=== PATIENT | female | born 1955 | race Two or more races ===

== ENCOUNTER 2024-01-19 13:37 | Emergency (ER) | payer MEDICARE, MEDICAID ==
[~2024-01-19] VITALS: Ht 165.1 cm; Wt 72.7 kg
[2024-01-19 15:12] LABS: Urine Bacteria FEW /hpf (None Seen); Urine Blood Negative /uL (Negative); Urine Clarity Turbid (Clear); Urine Color Yellow (Yellow); Urine Hyaline Cast FEW /lpf (0 - 2); Urine Mucus FEW (None Seen); Urine Protein, UAD TRACE (Negative); Urine Specific Gravity 1.018 (1.001-1.035); Urine Urobilinogen Normal (Negative); Urine WBC 4 /hpf (0 - 5); Urine pH 6.5 (5.0-9.0)
[2024-01-19] MEDS: cefTRIAXone 1GM/50ML D5W 50 ML IV ONE (16:34)
[2024-01-19 16:36] LABS: Basophils # (auto) 0.1 10 ^3/uL (0-0.2); Basophils % (auto) 0.6 % (0.0-2.0); Eosinophils # (auto) 0.3 10 ^3/uL (0-0.8); Eosinophils % (auto) 2.9 % (0.0-7.0); Lymphocytes # (auto) 2.5 10 ^3/uL (0.4-5.4); Mean Corpuscular Hemoglobin 24.2 pg (28.0-32.0); Mean Corpuscular Hgb Conc. 32.4 g/dL (32.0-36.0); Mean Corpuscular Volume 74.9 fL (80.0-100.0); Monocytes # (auto) 0.9 10 ^3/uL (0-1.3); Monocytes % (auto) 8.2 % (0.0-12.0); Neutrophils # (auto) 7.4 10 ^3/uL (1.6-8.6); Neutrophils % (auto) 66.3 % (37.0-80.0); Red Blood Cells 5.35 10^6/uL (4.0-5.20); Red Cell Distribution Width 14.4 % (11.8-14.3); White Blood Cell 11.2 10^3/uL (4.4-10.8)
[2024-01-19 16:58] LABS: Alanine Aminotransferase 19 U/L (7-40); Albumin 4.5 g/dL (3.2-4.8); Alkaline Phosphatase 77 U/L (46-116); Anion Gap 6 (5-15); Aspartate Aminotransferase 15 U/L (13-40); Bilirubin, Total 1.9 mg/dL (0.2-1.0); Blood Urea Nitrogen 18 mg/dL (9-23); Calcium 9.9 mg/dL (8.7-10.4); Carbon Dioxide 29 mmol/L (20-30); Chloride 102 mmol/L (98-107); Glucose 108 mg/dL (74-106); Lipase 55 U/L (12-53); Potassium 3.2 mmol/L (3.5-5.1); Sodium 137 mmol/L (136-145); Total Protein 7.4 g/dL (5.7-8.2)
[2024-01-19] MEDS ORDERED: AUG875T PO (20:21)
[2024-01-19] MEDS: AMOXICILLIN/CLAVUL 875 MG TAB PO ONE (21:02)
[2024-01-19] MEDS: HYDROcodone-ACET 5/325MG TAB PO ONE (21:02)
[2024-01-19 21:04] VITALS: BP 170/87; PULSE 75; RESP 18; TEMP 98.3; O2SAT 98
== END 2024-01-19 21:07 | disposition home or self-care (01) ==
LOC: EDBD 13:37 → ER 13:37
DX: N39.0 Urinary tract infection, site not specified (principal); K57.32 Diverticulitis of large intestine without perforation or abscess without bleeding; R91.1 Solitary pulmonary nodule; E11.9 Type 2 diabetes mellitus without complications; I10 Essential (primary) hypertension; Z90.49 Acquired absence of other specified parts of digestive tract
CPT/HCPCS: 36415; 74176; 80053; 81001; 83605; 83690; 84484; 85025; 87040; 96365; 99285; J0696

== ENCOUNTER 2024-12-01 14:59 | Inpatient (IN) | payer MEDICARE, MEDICAID ==
[~2024-12-01] VITALS: Ht 152.4 cm; Wt 73.3 kg
[~2024-12-01 14:59] MED LIST: AUG875T PO
--- NOTE | 2024-12-01 15:19 | ED.PDOC ---
Musculoskeletal HPI Comments 69 year old female KWABENA presents to the ED with chief shoulder pain s/p syncope. EMS reports that the patient was witnessed by family to have had a syncopal episode in the kitchen, hitting her left shoulder against some cabinets and her left hip hitting the ground. EMS relays that the patient had taken about 2-3 minutes to wake up and since then she has been complaining of left shoulder and hip pain. Patient denies any head injury, back injury, chest pain, SOB, N/V, or blurred vision. Time Seen by MD: 15:14 Reviewed Notes: Nurses Notes, Medications, Allergies Allergies: Coded Allergies: NO KNOWN ALLERGIES (Unverified , 01/19/24) Home Meds Active Scripts Amoxicillin & Pot Clavulanate (AUGMENTIN TABLET) 875 Mg Tb, 875 MG PO BID for 10 Days, #20 TAB Prov:ELROY RIZZO DO 01/19/24 Information Source: Patient Mode of Arrival: EMS Location: Left Extremity Location: Hip, Shoulder Timing: Hours Prehospital treatment: None Severity: Moderate Able to Move Extremity: Yes Bear Weight: Fully Pain: Moderate Mechanism: Blunt Trauma Circumstances: Fall Onset of Symptoms: After Trauma Symptoms: Pain DVT Risk Factors: NONE Last Tetanus: UTD Associated signs and symptoms: Shoulder pain, Hip pain Past Medical History PAST MEDICAL HISTORY: DM, HTN Surgical History: Cholecystectomy 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 History Family History Family History: Reviewed,noncontributory to illness Social History Smoker: Non-Smoker Alcohol: Denies ETOH Use Drugs: Denies Drug Use Lives In: Home Constitutional: denies: chills, diaphoresis, fatigue, fever, malaise, sweats, weakness, others EENTM: denies: blurred vision, double vision, ear bleeding, ear discharge, ear drainage, ear pain, ear ringing, eye pain, eye redness, hearing loss, mouth pain, mouth swelling, nasal discharge, nose bleeding, nose congestion, nose pain, photophobia, tearing, throat pain, throat swelling, voice changes, others Respiratory: denies: cough, hemoptysis, orthopnea, SOB at rest, shortness of breath, SOB with excertion, stridor, wheezing, others Cardiovascular: reports: syncope; denies: chest pain, dizzy spells, omer phoresis, Dyspnea on exertion, edema, irregular heart beat, left arm pain, lightheadedness, palpitations, PND, others Gastrointestinal: denies: abdomen distended, abdominal pain, blood streaked bowels, constipated, diarrhea, dysphagia, difficulty swallowing, hematemesis, melena, nausea, poor appetite, poor fluid intake, rectal bleeding, rectal pain, vomiting, others Genitourinary: denies: abnormal vagina bleeding, burning, dyspareunia, dysuria, flank pain, frequency, hematuria, incontinence, pain, , vagina discharge, urgency, others Neurological: reports: dizziness; denies: fainting, headache, left sided numbness, left sided weakness, numbness, paresthesia, pre-existing deficit, right sided numbness, right sided weakness, seizure, speech problems, tingling, tremors, weakness, others Musculoskeletal: reports: others (Left shoulder pain, Left hip pain); denies: back pain, gout, joint pain, joint swelling, muscle pain, muscle stiffness, neck pain Integumetry: denies: bruises, change in color, change in hair/nails, dryness, laceration, lesions, lumps, rash, wounds, others Allergic/Immunocompromised: denies: Difficulty Healing, Frequent Infections, Hives, Itching, others Hematologic/Lymphatic: denies: anemia, blood clots, easy bleeding, easy bruising, swollen glands, others Endocrine: denies: excessive hunger, excessive sweating, excessive thirst, excessive urination, flushing, intolerance to cold, intolerance to heat, unexplained weight gain, unexplained weight loss, others Psychiatric: denies: anxiety, bipolar disorder, depression, hopeless, panic disorder, schizophrenia, sleepless, suicidal, others All Other Systems: Reviewed and Negative Physical Exam General Appearance: Moderate Distress, Normal HEENT: Normal ENT Inspection, PERRL/EOMI Neck: Full Range of Motion, Non-Tender, Normal, Normal Inspection Respiratory: Chest Non-Tender, Lungs Clear, No Accessory Muscle Use, No Respiratory Distress, Normal Breath Sounds Cardiovascular: No Edema, No JVD, No Murmur, No Gallop, Normal Peripheral Pulses, Regular Rate/Rhythm Breast Exam: Deferred Gastrointestinal: No Organomegaly, Non Tender, No Pulsatile Mass, Normal Bowel Sounds, Soft Genitalia: Deferred Pelvic: Deferred Rectal: Deferred Extremities: No calf tenderness, Normal capillary refill, Normal inspection, Normal range of motion, Non-tender, No pedal edema Musculoskeletal : Apperance: Normal Neurologic: Disoriented, No Motor Deficits, Normal Affect, Normal Mood, No Sensory Deficits Cerebellar Function: NOT DONE Reflexes: NOT DONE Skin: Dry, Normal Color, Warm Peripheral Pulses: 3+ Radial (R), 3+ Radial (L) Lymphatic: No Adenopathy Was a procedure done? Was a procedure done?: No EKG EKG : Pulse Rate (adult): 73 [place]: Normal Cardiac Rhythm: NSR Block: None Hypertrophy: None ST: Normal Differential Diagnosis EXT Differential Diagnosis: Fracture, Sprain, Contusion, Strain X-Ray, Labs, Meds, VS Vital Signs Date Time Temp Pulse Resp B/P (MAP) Pulse Ox O2 Delivery O2 Flow Rate FiO2 12/01/24 15:19 73 12/01/24 15:05 73 Lab Test 12/01/24 15:46 Range/Units White Blood Count 8.4 4.4-10.8 10^3/uL Red Blood Count 5.50 H 4.0-5.20 10^6/uL Hemoglobin 13.4 12.2-16.2 g/dL Hematocrit 41.0 36.0-46.0 % Mean Corpuscular Volume 74.6 L 80.0-100.0 fL Mean Corpuscular Hemoglobin 24.4 L 28.0-32.0 pg Mean Corpuscular Hemoglobin Concent 32.7 32.0-36.0 g/dL Red Cell Distribution Width 14.9 H 11.8-14.3 % Platelet Count 350 140-450 10^3/uL Mean Platelet Volume 8.0 6.9-10.8 fL Neutrophils (%) (Auto) 66.2 37.0-80.0 % Lymphocytes (%) (Auto) 20.6 10.0-50.0 % Monocytes (%) (Auto) 7.6 0.0-12.0 % Eosinophils (%) (Auto) 4.9 0.0-7.0 % Basophils (%) (Auto) 0.7 0.0-2.0 % Neutrophils # (Auto) 5.6 1.6-8.6 10 ^3/uL Lymphocytes # (Auto) 1.7 0.4-5.4 10 ^3/uL Monocytes # (Auto) 0.6 0-1.3 10 ^3/uL Eosinophils # (Auto) 0.4 0-0.8 10 ^3/uL Basophils # (Auto) 0.1 0-0.2 10 ^3/uL Nucleated Red Blood Cells 0.0 % Sodium Level 137 136-145 mmol/L Potassium Level 4.4 3.5-5.1 mmol/L Chloride Level 99 98-107 mmol/L Carbon Dioxide Level 30 20-31 mmol/L Anion Gap 8 5-15 Blood Urea Nitrogen 16 9-23 mg/dL Creatinine 0.96 0.550-1.02 mg/dL Glomerular Filtration Rate Calc 63 >90 mL/min BUN/Creatinine Ratio 16.7 10.0-20.0 Serum Glucose 113 H 74-106 mg/dL Calcium Level 10.6 H 8.7-10.4 mg/dL Troponin I High Sensitivity 9 </=34 ng/L Patient is slightly confused. Daughter at bedside. Vitals stable. Answering questions. Cardiac marker within normal limits. EKG reviewed does not show any acute changes. CT of the head reviewed does not show any acute changes. WBC within normal limits. Hemoglobin within normal limits. Possibly will need echocardiogram. Possibly will need stress test. Unknown why she had passed out for few minutes. Possibly will need MRI. Explained to the family at 5:10 p.m. that she will be admitted. Continue monitoring. Time of 1ST Reevaluation: 16:14 Reevaluation 1ST: Unchanged Patient Education/Counseling: Diagnosis, Treatment Family Education/Counseling: No Family Present Additional Information The following tests were ordered, and results were reviewed by me: Additional Information was gathered from interviewing the following independent historians: I reviewed and agreed with the following test results read by other providers: I discussed treatment and results with medical personnel and: patient Comprehensive systems review obtained and negative except for what is stated in the HPI. Departure 1 Departure Time of Disposition: 17:00 Impression: Primary Impression: Metabolic encephalopathy Additional Impression: Syncope Qualified Codes: R55 - Syncope and collapse Disposition: 09 ADMITTED INPATIENT Admit to: Med Surg Condition: Guarded Comments Spoke to and examined patient at 1514, discussing treatment plan at this time. Critical Care Note Critical Care Time?: No Stability Stability form required: No Heart Score Heart Score: Heart Score Response (Comments) Value History Highly Suspicious 2 EKG Normal 0 Age >65 2 Risk Factors >3 or Hx ASHD 2 Troponin Normal limit 0 Total 6 I personally scribed for JUAQUIN HANSON MD ([email or web address]) on 12/01/24 at 15:19. Electronically submitted by Andrew Alvarez ([email or web address]). I personally scribed for JUAQUIN HANSON MD ([email or web address]) on 12/01/24 at 15:19. Electronically submitted by Andrew Alvarez ([email or web address]). JUAQUIN HANSON MD December 01, 2024 15:19
[2024-12-01 15:58] LABS: Basophils # (auto) 0.1 10 ^3/uL (0-0.2); Basophils % (auto) 0.7 % (0.0-2.0); Eosinophils # (auto) 0.4 10 ^3/uL (0-0.8); Eosinophils % (auto) 4.9 % (0.0-7.0); Hemoglobin 13.4 g/dL (12.2-16.2); Lymphocytes # (auto) 1.7 10 ^3/uL (0.4-5.4); Lymphocytes % (auto) 20.6 % (10.0-50.0); Mean Corpuscular Hemoglobin 24.4 pg (28.0-32.0); Mean Corpuscular Hgb Conc. 32.7 g/dL (32.0-36.0); Mean Corpuscular Volume 74.6 fL (80.0-100.0); Monocytes # (auto) 0.6 10 ^3/uL (0-1.3); Monocytes % (auto) 7.6 % (0.0-12.0); Neutrophils # (auto) 5.6 10 ^3/uL (1.6-8.6); Neutrophils % (auto) 66.2 % (37.0-80.0); Platelet Count (auto) 350 10^3/uL (140-450); Red Cell Distribution Width 14.9 % (11.8-14.3); White Blood Cell 8.4 10^3/uL (4.4-10.8)
--- NOTE | 2024-12-01 16:00 | DVH ---
CLINICAL INFORMATION: 69 years old, Female; syncope. TECHNIQUE: Axial imaging was obtained through the brain without contrast. Coronal and sagittal reform atted images were obtained, reviewed, and stored. Images were reviewed in brain and bone windows. Al l CT scans at this medical facility are performed using dose modulation techniques as appropriate to a performed exam including the following: Automated exposure control was utilized; adjustment of the MA and/or KV according to patient size; and use of iterative reconstruction technique. CTDIvol = 54.6 2 mGy DLP = 1184.13 mGy-cm COMPARISON: None FINDINGS: There is no acute intracranial hemorrhage. No mass effect or midline shift. Scattered areas of hypoattenuation are seen in the periventricular and subcortical white matter, which are nonspecif ic but most likely sequelae of small vessel ischemic disease.The ventricles and sulci are within norm al limits in size for age. Basal cisterns are patent. The calvarium is unremarkable. Mucosal thicken ing in the paranasal sinuses with mild partial opacification of the anterior right ethmoid air cells and right frontal sinus. Mastoid air cells are clear. IMPRESSION: 1. No CT evidence of acute intracranial abnormality. 2. Paranasal sinus disease and nonacute findings as described above.
--- NOTE | 2024-12-01 16:00 | DVH ---
EXAM: XY L SHOULDER 2+ VIEW XRAY HISTORY: fall COMPARISON: None TECHNIQUE: Four views of the left shoulder were performed. FINDINGS: No acute fracture or dislocation are identified about the left shoulder. No significant degenerative changes or loss of subacromial space. IMPRESSION: 1. Unremarkable radiographs of the left shoulder.
[2024-12-01 16:04] LABS: Anion Gap 8 (5-15); Carbon Dioxide 30 mmol/L (20-31); Chloride 99 mmol/L (98-107); Potassium 4.4 mmol/L (3.5-5.1); Sodium 137 mmol/L (136-145)
[2024-12-01 16:07] LABS: Calcium 10.6 mg/dL (8.7-10.4)
[2024-12-01 16:10] LABS: BUN/Creatinine Ratio 16.7 (10.0-20.0); Blood Urea Nitrogen 16 mg/dL (9-23)
[2024-12-01 16:13] LABS: Glucose 113 mg/dL (74-106)
[2024-12-01 18:21] LABS: Urine Bacteria FEW /hpf (None Seen); Urine Blood Negative /uL (Negative); Urine Clarity Clear (Clear); Urine Color Light-Yellow (Yellow); Urine Protein, UAD Negative (Negative); Urine Specific Gravity 1.017 (1.001-1.035); Urine Squamous Epithelial Cell FEW /hpf (<5); Urine Urobilinogen Normal (Negative); Urine WBC 4 /HPF (0-5); Urine pH 5.5 (5.0-9.0)
[2024-12-01 20:00] VITALS: PULSE 60
[2024-12-01 22:12] VITALS: PULSE 68; RESP 13; O2SAT 96
[2024-12-01 22:37] LABS: LDL Cholesterol 76 mg/dL (< 100)
[2024-12-01 22:38] LABS: HDL Cholesterol 56 mg/dL (40-59)
[2024-12-01 22:39] LABS: Cholesterol 151 mg/dL (< 200)
[2024-12-01 22:43] LABS: Triglycerides 153 mg/dL (< 150)
[2024-12-01 22:45] LABS: Folate (Folic Acid) 28.2 ng/mL (>5.38)
--- NOTE | 2024-12-01 22:47 | DVHHP2 ---
History of Present Illness Reason for Visit: syncope History of Present Illness 69-year-old female BIBA after a presyncopal episode witnessed by family at home. Patient felt palpitations and started to fell like she was about to faint, but she didnt have LOC, according to the daughter and the patient, she was in the kitchen and hitting her left shoulder against cabinets and falling on her left hip. Even do, ER provider and EMS stated the patient had LOC and took 23 minutes to regain consciousness. Since the event, she has complained of moderate left shoulder and hip pain. Denies head trauma, chest pain, SOB, nausea, vomiting, or vision changes. No recent illness reported. ROS: Negative for chest pain, SOB, nausea, vomiting, dizziness before event, back pain, or blurry vision. PMH: Pre DM HTN S/P cholecystectomy SH: Non-smoker Denies EtOH or drug use Review of Systems Constitutional: No: Fever, Chills, Sweats, Weakness, Malaise, Other Eyes: No: Pain, Vision change, Conjunctivae inflammation, Eyelid inflammation, Other, Redness ENT: No: Ear pain, Ear discharge, Nose pain, Nose discharge, Nose congestion, Mouth pain, Mouth swelling, Throat pain, Throat swelling, Other Respiratory: No: Cough, Dry, Shortness of breath, SOB with excertion, Wheezing, Hemoptysis, Pleuritic Pain, Sputum, Wheezing, Other Cardiovascular: No: Chest Pain, Palpitations, Orthopnea, Paroxysmal Noc. Dyspnea, Edema, Lt Headedness, Other Gastrointestinal: No: Nausea, Vomiting, Abdominal Pain, Diarrhea, Constipation, Melena, Hematochezia, Other Genitourinary: No Dysuria, No Frequency, No Incontinence, No Hematuria, No Retention, No Other Musculoskeletal: No: other, neck pain, shoulder pain, arm pain, back pain, hand pain, leg pain, foot pain Skin: No: Rash, Lesions, Jaundice, Bruising, Other Neurological: No: Weakness, Numbness, Incoordination, Change in speech, Confusion, Seizures, Other Allergies: Coded Allergies: NO KNOWN ALLERGIES (Unverified , 01/19/24) Medications Current Medications Medications Dose Ordered Sig/Janis Route Start Time Stop Time Status Last Admin Dose Admin Enoxaparin Sodium 40 mg DAILY SC 12/02/24 10:00 Aspirin 81 mg DAILY PO 12/02/24 10:00 Pantoprazole Sodium 40 mg DAILY@0600 PO 12/02/24 06:00 Exam Vital Signs Vital Signs Date Time Temp Pulse Resp B/P (MAP) Pulse Ox O2 Delivery O2 Flow Rate FiO2 12/01/24 22:12 98.5 68 13 138/72 (94) 96 98.5 12/01/24 22:12 Room Air* 0 21 Exam General: Awake, alert, no acute distress Cardiac/Pulmonary: Normal S1/S2, no murmurs. Clear to auscultation bilaterally. Neuro: Alert, oriented, CN IIXII grossly intact. No focal deficits. MSK: No deformity. Left shoulder TTP, but no swelling or step-off. Full ROM in both hips. Ambulation limited due to pain but intact motor function. Skin: No abrasions or lacerations noted Labs/Xrays Labs Test 12/01/24 22:10 12/01/24 17:55 12/01/24 15:46 Range/Units POC Glucose 159 H 70-106 mg/dl Urine Color Light-yellow Yellow Urine Clarity Clear Clear Urine pH 5.5 5.0-9.0 Urine Specific [place] 1.017 1.001-1.035 Urine Protein Negative Negative Urine Ketones Negative Negative Urine Blood Negative Negative /uL Urine Nitrite 2+ H Negative Urine Bilirubin Negative Negative Urine Urobilinogen Normal Negative mg/dL Urine Leukocyte Esterase Trace Negative /uL Urine RBC 1 0 - 4 /hpf Urine Microscopic WBC 4 0-5 /HPF Urine Squamous Epithelial Cells Few <5 /hpf Urine Bacteria Few H None Seen /hpf Urine Glucose Normal Normal mg/dL White Blood Count 8.4 4.4-10.8 10^3/uL Red Blood Count 5.50 H 4.0-5.20 10^6/uL Hemoglobin 13.4 12.2-16.2 g/dL Hematocrit 41.0 36.0-46.0 % Mean Corpuscular Volume 74.6 L 80.0-100.0 fL Mean Corpuscular Hemoglobin 24.4 L 28.0-32.0 pg Mean Corpuscular Hemoglobin Concent 32.7 32.0-36.0 g/dL Red Cell Distribution Width 14.9 H 11.8-14.3 % Platelet Count 350 140-450 10^3/uL Mean Platelet Volume 8.0 6.9-10.8 fL Neutrophils (%) (Auto) 66.2 37.0-80.0 % Lymphocytes (%) (Auto) 20.6 10.0-50.0 % Monocytes (%) (Auto) 7.6 0.0-12.0 % Eosinophils (%) (Auto) 4.9 0.0-7.0 % Basophils (%) (Auto) 0.7 0.0-2.0 % Neutrophils # (Auto) 5.6 1.6-8.6 10 ^3/uL Lymphocytes # (Auto) 1.7 0.4-5.4 10 ^3/uL Monocytes # (Auto) 0.6 0-1.3 10 ^3/uL Eosinophils # (Auto) 0.4 0-0.8 10 ^3/uL Basophils # (Auto) 0.1 0-0.2 10 ^3/uL Nucleated Red Blood Cells 0.0 % Sodium Level 137 136-145 mmol/L Potassium Level 4.4 3.5-5.1 mmol/L Chloride Level 99 98-107 mmol/L Carbon Dioxide Level 30 20-31 mmol/L Anion Gap 8 5-15 Blood Urea Nitrogen 16 9-23 mg/dL Creatinine 0.96 0.550-1.02 mg/dL Glomerular Filtration Rate Calc 63 >90 mL/min BUN/Creatinine Ratio 16.7 10.0-20.0 Serum Glucose 113 H 74-106 mg/dL Hemoglobin A1c 6.0 H <5.7 % A1C Calcium Level 10.6 H 8.7-10.4 mg/dL Troponin I High Sensitivity 9 </=34 ng/L B-Type Natriuretic Peptide 34.27 0-100 pg/mL Triglycerides Level 153 H < 150 mg/dL Cholesterol Level 151 < 200 mg/dL LDL Cholesterol 76 < 100 mg/dL HDL Cholesterol 56 40-59 mg/dL Vitamin B12 Level 669 211-911 pg/mL Folic Acid 28.20 >5.38 ng/mL Thyroid Stimulating Hormone (TSH) 1.17 0.55-4.78 uIU/mL Assessment/Plan Assessment/Plan #Presyncope vs Syncope #Prediabetes #Mild hypertriglyceridiemia #UTI? #Hypertension Admit Telemetry Cardiac diet Aspirin Protonix PO Ceftriaxone IV Pending ECHO Case discussed with Dr Catherine Full code Plan discussed with: Patient, Other My Orders Orders - ALEX BLAIR RESIDENT Procedure Category Date Status Time Admit ADMIT 12/01/24 Transmitted 21:14 Code Status CODE 12/01/24 Transmitted 21:14 Vital Signs [place] 12/01/24 In Process 21:14 Review Orders With ISRAEL 12/01/24 In Process Adm.Md 21:14 Consistent DIET 12/02/24 Transmitted Carb([facility], [place])Diabetes Breakfast Notify Md Of Changes [place] 12/01/24 In Process From Base 21:14 Advance Directive [place] 12/01/24 In Process 21:14 Echo 2d Mode Cardiac US 12/01/24 Logged DOP 21:14 Patient Condition ORDERS 12/01/24 Transmitted 21:14 Allergies [place] 12/01/24 In Process 21:14 Enoxaparin Sodium PHA 12/02/24 In Process (Lovenox) 10:00 Aspirin Tablet PHA 12/02/24 In Process 10:00 Chest Xray 1 View XY 12/01/24 Logged 21:56 Carotid Duplx W Color US 12/01/24 Logged DOP 21:56 Pantoprazole Tablet PHA 12/02/24 In Process (Protonix Tablet) 06:00 Date of Service: December 01, 2024 Billing Provider: LAUREN CATHERINE MD Common Visit Codes: [id number] INP/OBS CARE (HIGH) Secondary Visit Codes: [id number] CARE PLAN 30 MINUTES ALEX BLAIR RESIDENT December 01, 2024 22:47
[2024-12-01 23:54] VITALS: BP 122/71; PULSE 62; RESP 18; TEMP 97.8; O2SAT 99
[2024-12-02] VITALS (8 sets, daily range): BP systolic 104–124; BP diastolic 59–77; PULSE 55–66; RESP 14–18; TEMP 97.7–98; O2SAT 95–99
--- NOTE | 2024-12-02 01:04 | DVH ---
CAROTID DOPPLER EXAMINATION CLINICAL HISTORY: rule out stenosis TECHNIQUE: Real-time high resolution grayscale imaging and color Doppler flow imaging with pulsed du plex sonography of the carotid and vertebral arteries is performed. Velocity criteria are extrapolated from angiographic diameter data as defined by the Society of Radio logists in Ultrasound Consensus Conference (Radiology 2003; 229: 340-346). Comparison: None FINDINGS: No significant grayscale stenosis noted. Doppler waveforms are satisfactory. Antegrade flow in the b ilateral vertebral arteries. Peak systolic velocities (cm/s): Right ICA proximal: 44.1 Right ICA mid: 51.1 Right ICA distal: 53.7 Right systolic ICA/CCA ratio: 1.2 Left ICA proximal: 44.5 Left ICA mid: 60.2 Left ICA distal: 42.4 Left systolic ICA/CCA ratio: 1.3 IMPRESSION: No hemodynamically significant stenoses. Antegrade flow in the bilateral vertebral arteries. HS:Y
[2024-12-02] MEDS: ACETAMINOPHEN 325 MG TAB PO PRN (01:59)
[2024-12-02] MEDS: cefTRIAXone 1GM/50ML D5W 50 ML IV SCH (03:53)
[2024-12-02] MEDS: PANTOPRAZOLE 40 MG TAB PO SCH (05:10)
[2024-12-02 06:20] LABS: Basophils # (auto) 0.1 10 ^3/uL (0-0.2); Eosinophils # (auto) 0.6 10 ^3/uL (0-0.8); Hematocrit 37.1 % (36.0-46.0); Monocytes # (auto) 0.6 10 ^3/uL (0-1.3); White Blood Cell 7.3 10^3/uL (4.4-10.8)
[2024-12-02 06:23] LABS: Basophils % (auto) 0.7 % (0.0-2.0); Eosinophils % (auto) 8.7 % (0.0-7.0); Hemoglobin 12.4 g/dL (12.2-16.2); Lymphocytes # (auto) 2.3 10 ^3/uL (0.4-5.4); Lymphocytes % (auto) 31.5 % (10.0-50.0); Mean Corpuscular Hemoglobin 24.9 pg (28.0-32.0); Mean Corpuscular Hgb Conc. 33.3 g/dL (32.0-36.0); Mean Corpuscular Volume 74.8 fL (80.0-100.0); Monocytes % (auto) 8.6 % (0.0-12.0); Neutrophils # (auto) 3.7 10 ^3/uL (1.6-8.6); Neutrophils % (auto) 50.5 % (37.0-80.0); Nucleated Red Blood Cells % 0.3 %; Platelet Count (auto) 312 10^3/uL (140-450); Red Blood Cells 4.96 10^6/uL (4.0-5.20); Red Cell Distribution Width 14.9 % (11.8-14.3)
--- NOTE | 2024-12-02 06:23 | DVH ---
EXAM: XR Chest, 1 View CLINICAL INDICATION: pulmonary nodule TECHNIQUE: Frontal view of the chest. COMPARISON: None FINDINGS: LUNGS AND PLEURAL SPACES: Mild pulmonary congestion. Pulmonary nodules not clearly demonstrated on radiograph exam. If indicated, CT of the chest is a more sensitive exam. No consolidation. No pneu mothorax. HEART: Unremarkable. No cardiomegaly. MEDIASTINUM: Unremarkable. Normal mediastinal contour. BONES/JOINTS: Unremarkable. No acute fracture. OTHER FINDINGS: . IMPRESSION: Mild pulmonary congestion. Pulmonary nodules not clearly demonstrated on radiograph exam. If indica felice, CT of the chest is a more sensitive exam.
[2024-12-02 06:47] LABS: Alanine Aminotransferase 15 U/L (7-40); Albumin 4.1 g/dL (3.2-4.8); Alkaline Phosphatase 68 U/L (46-116); Anion Gap 10 (5-15); Aspartate Aminotransferase 15 U/L (13-40); BUN/Creatinine Ratio 16.5 (10.0-20.0); Blood Urea Nitrogen 15 mg/dL (9-23); Calcium 9.2 mg/dL (8.7-10.4); Carbon Dioxide 30 mmol/L (20-31); Chloride 100 mmol/L (98-107); Potassium 3.6 mmol/L (3.5-5.1); Sodium 140 mmol/L (136-145); Total Protein 6.4 g/dL (5.7-8.2)
[2024-12-02 06:48] LABS: Bilirubin, Total 0.9 mg/dL (0.2-1.0)
[2024-12-02 07:05] LABS: Glucose 117 mg/dL (74-106)
--- NOTE | 2024-12-02 09:56 | ECG ---
[facility] Test Date: 2024-12-01 Test Time: 15:05:08 Pat Name: ALEX STEVENSON Department: ED Room: 0246T A Gender: F [employer]: mallory : 1955 Requested By: JUAQUIN HANSON Order Number: [id number] Reading MD: Sharath Berrios Measurements Intervals [place] Rate: 73 P: 18 MT: 148 QRS: -10 QRSD: 92 T: 2 QT: 385 QTc: 425 Interpretive Statements Sinus rhythm Left ventricular hypertrophy Electronically Signed On 12-02-2024 13:14:28 PDT by Sharath Berrios Please click the below link to view image of tracing.
[2024-12-02] MEDS ORDERED: PANTOPRAZOLE 40 MG/10 ML VIAL INJ IV SCH (10:00)
[2024-12-02] MEDS: ASPirin 81 mg TAB PO SCH (10:19)
[2024-12-02] MEDS: ENOXAPARIN SOD 40 MG/0.4 ML SYRINGE SC SCH (10:19)
--- NOTE | 2024-12-02 14:52 | DVHPN2 ---
Subjective 69-year-old female with a history of pre diabetes, came after a presyncopal episode witnessed by the family at home She did not lose consciousness she did not have head trauma Changes from previous H/P or p: Changes Eyes: No Pain, No Vision change, No Conjunctivae inflammation, No Eyelid inflammation, No Other, No Redness ENT: No Ear pain, No Ear discharge, No Nose pain, No Nose discharge, No Nose congestion, No Mouth pain, No Mouth swelling, No Throat pain, No Throat swelling, No Other Cardiovascular: No Chest Pain, No Palpitations, No Orthopnea, No Paroxysmal Noc. Dyspnea, No Edema, No Lt Headedness, No Other Respiratory: No Cough, No Dry, No Shortness of breath, No SOB with excertion, No Wheezing, No Hemoptysis, No Pleuritic Pain, No Sputum, No Other Gastrointestinal: No Nausea, No Vomiting, No Abdominal Pain, No Diarrhea, No Constipation, No Melena, No Hematochezia, No Other Genitourinary: No Dysuria, No Frequency, No Incontinence, No Hematuria, No Retention, No Other Musculoskeletal: No other, No neck pain, No shoulder pain, No arm pain, No back pain, No hand pain, No leg pain, No foot pain Skin: No Rash, No Lesions, No Jaundice, No Bruising, No Other Objective Vitals Vital Signs Date Time Temp Pulse Resp B/P (MAP) Pulse Ox O2 Delivery O2 Flow Rate FiO2 12/02/24 09:24 97.7 64 18 124/77 (93) 99 97.7 12/02/24 08:00 Room Air* 0 21 Intake/Output Intake and Output 12/02/24 07:00 Intake Total 50 ml Balance 50 ml Intake Oral 0 ml IV Total 50 ml # Voids 2 General Appearance: Alert, Oriented X3, Cooperative, No acute distress Lungs: Clear to auscultation, Normal air movement Cardiovascular: Regular rate, Normal S1, Normal S2 Abdomen: Normal bowel sounds, Soft, No tenderness Extremities: No edema Medications Current Medications Medications Dose Ordered Sig/Janis Route Start Time Stop Time Status Last Admin Dose Admin Enoxaparin Sodium 40 mg DAILY SC 12/02/24 10:00 12/02/24 10:19 40 MG Aspirin 81 mg DAILY PO 12/02/24 10:00 12/02/24 10:19 81 MG Pantoprazole Sodium 40 mg DAILY@0600 PO 12/02/24 06:00 12/02/24 05:10 40 MG Acetaminophen 325 mg Q4HP PRN PO 12/02/24 01:30 12/02/24 01:59 325 MG Ceftriaxone Sodium 50 ml @ 100 mls/hr DAILY@09 IV 12/02/24 02:45 12/02/24 10:18 100 MLS/HR Laboratory Results Laboratory Tests 12/02/24 05:40 Chemistry Test 12/01/24 15:46 12/02/24 05:40 Calcium Level 10.6 mg/dL (8.7-10.4) H 9.2 mg/dL (8.7-10.4) Albumin 4.1 g/dL (3.2-4.8) Total Protein 6.4 g/dL (5.7-8.2) Lipid panel Test 12/01/24 15:46 Cholesterol Level 151 mg/dL (< 200) HDL Cholesterol 56 mg/dL (40-59) Triglycerides Level 153 mg/dL (< 150) H Cardiac Markers Test 12/01/24 15:46 B-Type Natriuretic Peptide 34.27 pg/mL (0-100) LFT Test 12/02/24 05:40 Alanine Aminotransferase (ALT) 15 U/L (7-40) Alkaline Phosphatase 68 U/L (46-116) Aspartate Amino Transferase (AST) 15 U/L (13-40) Total Bilirubin 0.9 mg/dL (0.2-1.0) HgA1c, TSH Test 12/01/24 15:46 Hemoglobin A1c 6.0 % A1C (<5.7) H Thyroid Stimulating Hormone (TSH) 1.17 uIU/mL (0.55-4.78) Urinalysis Test 12/01/24 17:55 Urine Color Light-yellow (Yellow) Urine Clarity Clear (Clear) Urine pH 5.5 (5.0-9.0) Urine Specific [place] 1.017 (1.001-1.035) Urine Protein Negative (Negative) Urine Ketones Negative (Negative) Urine Blood Negative /uL (Negative) Urine Nitrite 2+ (Negative) H Urine Bilirubin Negative (Negative) Urine Urobilinogen Normal mg/dL (Negative) Urine Leukocyte Esterase Trace /uL (Negative) Urine RBC 1 /hpf (0 - 4) Urine Microscopic WBC 4 /HPF (0-5) Urine Squamous Epithelial Cells Few /hpf (<5) Urine Bacteria Few /hpf (None Seen) H Urine Glucose Normal mg/dL (Normal) Assessment/Plan Assessment/Plan Presyncope UTI Prediabetic Hypertension Status post cholecystectomy Plan CT scan of the head was negative Carotid Doppler is normal Chest x-ray showed mild pulmonary congestion possible lung nodules, recommended a CT scan of the chest Echocardiogram is done and pending Rocephin IV for the UTI Aspirin daily Monitor closely Full code Advance directives discussed for 22 minutes Plan discussed with: Patient Date of Service: December 02, 2024 Billing Provider: MORA ENRIQUE MD Common Visit Codes: [id number] INP/OBS CARE(HIGH) Secondary Visit Codes: [id number] CARE PLAN 30 MINUTES MORA ENRIQUE MD December 02, 2024 14:52
--- NOTE | 2024-12-02 16:43 | DVH ---
Procedure: CT CHEST WITHOUT CONTRAST Reason for study/Clinical History: Lung nodule Comparison Study: None Exam Date: 12/02/2024 03:48 PM TECHNIQUE: Multidetector CT of the chest was performed from the lung apices to the upper abdomen with out the use of intravenous contract. Axial, coronal and sagittal multiplanar reformats were performed . Radiation Dose Information: CT Dose: CTDI volume is 13.33 mGy. Dose-length product is 438.29 mGy*cm The dose indicators for CT are the volume Computed Tomography (CT) Dose Index (CTDIvol) and the Dose Length Product (DLP), and are measured in units of mGy and mGy-cm, respectively. These indicators are not patient dose, but values generated from the CT scanner acquisition factors. The report includes radiation exposure data for exposures received during this examination. FINDINGS: Lower neck: Normal thyroid. Lungs: 13 - 14 mm nodule noncalcified posterior costophrenic angle on the left series 3 image 96. Heart/Vascular Structures: Normal heart size. No pericardial effusion. Lymph Nodes: No adenopathy Pleura: No pleural effusion or significant pneumothorax. Musculoskeletal: No acute osseous abnormality. Soft tissues: Normal. Upper abdomen: Limited portions of the upper abdomen are unremarkable. IMPRESSION: 1. 13-14 mm nodule noncalcified left posterior costophrenic angle. (series 3 image 96.) recommend fo llow-up according to Fleischner criteria Fleischner Society pulmonary nodule recommendations (2017): Single solid nodule <6 mm Low-risk patients: no routine follow-up required High-risk patients: optional CT at 12 months (particularly with suspicious nodule morphology and/or upper lobe location) Solitary solid nodule 6-8 mm Low-risk patients: CT at 6-12 months, then consider CT at 18-24 months High-risk patients: CT at 6-12 months, then CT at 18-24 months Solitary solid nodule >8 mm (>250 mm3) Low-risk and high-risk patients: consider CT at 3 months, PET/CT, or tissue sampling Multiple solid nodules <6 mm Low-risk patients: no routine follow-up required High-risk patients: optional CT at 12 months Multiple solid nodules >6 mm Low-risk patients: CT at 3-6 months, then consider CT at 18-24 months High-risk patients: CT at 3-6 months, then CT at 18-24 months When multiple nodules are present, the most suspicious nodule should guide further individualized management. Solitary groundglass opacities < 6 mm require no follow-up Multiple groundglass opacities < 6 mm: CT 3-6 months. If stable consider CT at 2 , and 4 years Groundglass opacities >6 mm: follow-up in 6-12 months and then every 2 years for 5 years. Groundglass opacities greater than 6 mm with part solid component follow-up CT in 3-6 months to confirm persistence. If unchanged and solid component remains less than [address] for 5 years Multiple groundglass opacities greater than 6 mm: CT at 3-6 months. Subsequent management based on the most suspicious nodules. These recommendations do not necessarily apply to women, patients with immunosuppression or a prior history of cancer, patients with multiple nodules that are suspicious for metastasis or infection, or patients with mediastinal lymphadenopathy or pleural effusion in whom cancer is strongly suspected. Radiation optimization: All CT scans at this facility use at least one of these dose optimization vciki hniques: automated exposure control mA and/or kV adjustment per patient size (includes targeted exam s where dose is matched to clinical indication) or iterative reconstruction.
[2024-12-03] VITALS (7 sets, daily range): BP systolic 116–135; BP diastolic 65–79; PULSE 54–72; RESP 14–18; TEMP 97.6–98.1; O2SAT 17–98
--- NOTE | 2024-12-03 00:06 | DVHSR ---
APPROVED REPORT EXAM: Two-dimensional and M-mode echocardiogram with Doppler and color Doppler. Mitral Valve MitralMitral Stenosis E/A ratio0.02D MVAcm2 LEFT VENTRICLE The left ventricle is normal size. There is normal left ventricular wall thickness. The left ventricle is normal in structure and function. Left ventricle systolic function is normal. The Ejection Fraction is 55-60%. No regional wall motion abnormalities noted. RIGHT VENTRICLE The right ventricle is normal size. There is normal right ventricular wall thickness. The right ventricular systolic function is normal. ATRIA The left atrium size is normal. The right atrium size is normal. The interatrial septum is intact with no evidence for an atrial septal defect. MITRAL VALVE The mitral valve is normal in structure and function. There is no evidence of mitral valve prolapse. There is no mitral valve stenosis. There is no mitral valve regurgitation noted. PULMONIC VALVE The pulmonary valve is normal in structure and function. There is no pulmonic valvular regurgitation. There is no pulmonic valvular stenosis. TRICUSPID VALVE The tricuspid valve is normal in structure and function. There is no tricuspid valve regurgitation noted. There is no tricuspid valve prolapse or vegetation. There is no tricuspid valve stenosis. AORTIC VALVE The aortic valve is normal in structure and function. No aortic regurgitation is present. There is no aortic valvular stenosis. There is no aortic valvular vegetation. GREAT VESSELS The aortic root is normal in size. PERICARDIAL EFFUSION There is a no pericardial effusion. Conclusion There is normal left ventricular wall thickness. The left ventricle is normal in structure and function. Left ventricle systolic function is normal. The Ejection Fraction is 55-60%. There is no gross valvular pathology There is no pericardial effusion.
[2024-12-03] MEDS ORDERED: NITR-87 PO (18:04)
--- NOTE | 2024-12-03 18:59 | DVHDS2 ---
Discharge Summary Date of Admission December 01, 2024 at 21:14 Date of Discharge: December 03, 2024 Labs/Diagnostic Data: Laboratory Results Test 12/02/24 05:40 12/01/24 22:10 12/01/24 17:55 12/01/24 15:46 White Blood Count 7.3 10^3/uL (4.4-10.8) Red Blood Count 4.96 10^6/uL (4.0-5.20) Hemoglobin 12.4 g/dL (12.2-16.2) Hematocrit 37.1 % (36.0-46.0) Mean Corpuscular Volume 74.8 fL (80.0-100.0) Mean Corpuscular Hemoglobin 24.9 pg (28.0-32.0) Mean Corpuscular Hemoglobin Concent 33.3 g/dL (32.0-36.0) Red Cell Distribution Width 14.9 % (11.8-14.3) Platelet Count 312 10^3/uL (140-450) Mean Platelet Volume 8.1 fL (6.9-10.8) Neutrophils (%) (Auto) 50.5 % (37.0-80.0) Lymphocytes (%) (Auto) 31.5 % (10.0-50.0) Monocytes (%) (Auto) 8.6 % (0.0-12.0) Eosinophils (%) (Auto) 8.7 % (0.0-7.0) Basophils (%) (Auto) 0.7 % (0.0-2.0) Neutrophils # (Auto) 3.7 10 ^3/uL (1.6-8.6) Lymphocytes # (Auto) 2.3 10 ^3/uL (0.4-5.4) Monocytes # (Auto) 0.6 10 ^3/uL (0-1.3) Eosinophils # (Auto) 0.6 10 ^3/uL (0-0.8) Basophils # (Auto) 0.1 10 ^3/uL (0-0.2) Nucleated Red Blood Cells 0.3 % Sodium Level 140 mmol/L (136-145) Potassium Level 3.6 mmol/L (3.5-5.1) Chloride Level 100 mmol/L (98-107) Carbon Dioxide Level 30 mmol/L (20-31) Anion Gap 10 (5-15) Blood Urea Nitrogen 15 mg/dL (9-23) Creatinine 0.91 mg/dL (0.550-1.02) Glomerular Filtration Rate Calc 67 mL/min (>90) BUN/Creatinine Ratio 16.5 (10.0-20.0) Serum Glucose 117 mg/dL (74-106) Calcium Level 9.2 mg/dL (8.7-10.4) Total Bilirubin 0.9 mg/dL (0.2-1.0) Aspartate Amino Transferase (AST) 15 U/L (13-40) Alanine Aminotransferase (ALT) 15 U/L (7-40) Alkaline Phosphatase 68 U/L (46-116) Total Protein 6.4 g/dL (5.7-8.2) Albumin 4.1 g/dL (3.2-4.8) POC Glucose 159 mg/dl (70-106) Urine Color Light-yellow (Yellow) Urine Clarity Clear (Clear) Urine pH 5.5 (5.0-9.0) Urine Specific [place] 1.017 (1.001-1.035) Urine Protein Negative (Negative) Urine Ketones Negative (Negative) Urine Blood Negative /uL (Negative) Urine Nitrite 2+ (Negative) Urine Bilirubin Negative (Negative) Urine Urobilinogen Normal mg/dL (Negative) Urine Leukocyte Esterase Trace /uL (Negative) Urine RBC 1 /hpf (0 - 4) Urine Microscopic WBC 4 /HPF (0-5) Urine Squamous Epithelial Cells Few /hpf (<5) Urine Bacteria Few /hpf (None Seen) Urine Glucose Normal mg/dL (Normal) Hemoglobin A1c 6.0 % A1C (<5.7) Troponin I High Sensitivity 9 ng/L (</=34) B-Type Natriuretic Peptide 34.27 pg/mL (0-100) Triglycerides Level 153 mg/dL (< 150) Cholesterol Level 151 mg/dL (< 200) LDL Cholesterol 76 mg/dL (< 100) HDL Cholesterol 56 mg/dL (40-59) Vitamin B12 Level 669 pg/mL (211-911) Folic Acid 28.20 ng/mL (>5.38) Thyroid Stimulating Hormone (TSH) 1.17 uIU/mL (0.55-4.78) Other Laboratory Tests 12/02/24 05:40 Brief Hx & Hospital Course: Final diagnoses: Presyncope UTI Prediabetic Hypertension Status post cholecystectomy 69-year-old female who was admitted for a presyncopal episode and was found to have a UTI She was treated with the IV antibiotics for the UTI Workup for the syncope included CT scan of the head and carotid Doppler which were normal Chest x-ray showed suspicion of a lung nodule and therefore we did a high- resolution CT scan of the chest which showed a 13-14 mm lung nodule of the left lung The patient and the family said that they are aware of this nodule that she had before and that she has seen a doctor who follows as an outpatient We consulted Dr. Hollis also to give an opinion about the lung nodule, she is cleared for discharge, she will follow up with Dr. Hollis, she will need regular follow up to monitor the size of the nodule Otherwise she can be discharged home on Macrobid for the UTI and the rest of her home medications and follow up with her primary care physician as soon as possible Condition at Discharge: Stable Final Diagnosis/Problems List Presyncope UTI Prediabetic Hypertension Status post cholecystectomy Discharge Disposition: Home SNF Discharge Will this Physician continue t: No Discharge Instruct/Medications Diet: Cardiac 2g Na,low cholest Activity: No Restrictions, As Tolerated Follow Up/Referral: PCP [facility] Medications: Macrobid 100 mg bid x 5 days Discharge Statement: "Patient was advised to return to the ER or call 911 if any headaches, dizziness, shortness of breath, chest pain, abdominal pain, bleeding, fevers, or worsening of medical condition. Patient was counseled about treatment plan, medications, possible side effects, patientverbalized understanding. All questions were answered to the best of my ability. This discharge took greater then 30 minutes in planning, reviewing documentation, counseling the patient, and discussing with other team members." ASSESSMENT ASSESSMENT Assessment Presyncope UTI Prediabetic Hypertension Status post cholecystectomy Date of Service: December 03, 2024 Billing Provider: MORA ENRIQUE MD Common Visit Codes: 67636-WRX/OBS DISCH DAY >30min MORA ENRIQUE MD December 03, 2024 18:59
--- NOTE | 2024-12-03 21:25 | DVHINCON2 ---
Date of service: December 03, 2024 Referring Physician Monie Pierce MD Reason for Consultation Pulmonary nodule History of Present Illness A 69-year-old woman with PMHx of prediabetes and hypertension who presented to ED via EMS on 12/01/24 after a presyncopal episode witnessed by family at home. Patient felt palpitations and started to feel like she was about to faint, but did not have LOC according to the daughter and the patient. Patient was in the kitchen and hit her left shoulder against cabinets and fell on her left hip. Of note, per ER provider and EMS, patient had positive LOC and took 23 minutes to regain consciousness. Since the event, she has complained of moderate left shoulder and hip pain. Denied head trauma, chest pain, SOB, nausea, vomiting, or vision changes. No recent illness reported. Patient was admitted for further care and pulmonary consultation is requested for evaluation and management d/t pulmonary nodule found on workup. Review of Systems: 14-point review of systems negative unless otherwise noted above. Past Medical History: Prediabetes and hypertension Past Surgical History: S/p cholecystectomy Medications: Reviewed. Allergies: No known drug allergies. Family History: No family history of premature CAD. No family history of lung disorders. Social History: Nonsmoker. No alcohol or illicit drug use. Family History: Patient reports no known family medical history. Allergies: Coded Allergies: NO KNOWN ALLERGIES (Unverified , 01/19/24) Home Meds Active Scripts Nitrofurantoin Monohydrate Mac (Macrobid) 100 Mg Cap, 100 MG PO BID for 5 Days, #10 CAP Prov:MONIE PIERCE MD 12/03/24 Discontinued Scripts Amoxicillin & Pot Clavulanate (AUGMENTIN TABLET) 875 Mg Tb, 875 MG PO BID for 10 Days, #20 TAB Prov:ELROY RIZZO DO 01/19/24 Vital Signs Vital Signs Date Time Temp Pulse Resp B/P (MAP) Pulse Ox O2 Delivery O2 Flow Rate FiO2 12/03/24 19:11 97.8 71 16 98 12/03/24 17:19 116/79 (91) 12/03/24 08:00 Room Air* 0 21 Physical Exam Gen.: Patient lying in bed in no apparent distress. Breathing on room air. Head: Normocephalic, atraumatic. Eyes: EOMI/PERRLA. Ears: Normal hearing. Normal anatomy. Neck/trachea: Trachea midline, supple. Nose: Normal external anatomy. Mouth: Moist mucous membranes. Chest: Decreased air entry bilaterally. No wheezing or rhonchi. Cardiovascular: Positive S1, positive S2. Regular rate and rhythm. Abdomen: Positive bowel sounds in all 4 quadrants. Soft, non-tender, non- distended. : Deferred. Rectal: Deferred. Skin: Warm, dry. Intact. Extremities: 2+ radial pulses bilaterally. No lower extremity edema. Neuro: Awake, alert, oriented x3. No gross motor or sensory deficits. Cranial nerves II through XII intact. Gait not assessed. Labs/Diagnostic Data Labs Test 12/02/24 05:40 12/01/24 22:10 12/01/24 17:55 12/01/24 15:46 Range/Units White Blood Count 7.3 4.4-10.8 10^3/uL Red Blood Count 4.96 4.0-5.20 10^6/uL Hemoglobin 12.4 12.2-16.2 g/dL Hematocrit 37.1 36.0-46.0 % Mean Corpuscular Volume 74.8 L 80.0-100.0 fL Mean Corpuscular Hemoglobin 24.9 L 28.0-32.0 pg Mean Corpuscular Hemoglobin Concent 33.3 32.0-36.0 g/dL Red Cell Distribution Width 14.9 H 11.8-14.3 % Platelet Count 312 140-450 10^3/uL Mean Platelet Volume 8.1 6.9-10.8 fL Neutrophils (%) (Auto) 50.5 37.0-80.0 % Lymphocytes (%) (Auto) 31.5 10.0-50.0 % Monocytes (%) (Auto) 8.6 0.0-12.0 % Eosinophils (%) (Auto) 8.7 H 0.0-7.0 % Basophils (%) (Auto) 0.7 0.0-2.0 % Neutrophils # (Auto) 3.7 1.6-8.6 10 ^3/uL Lymphocytes # (Auto) 2.3 0.4-5.4 10 ^3/uL Monocytes # (Auto) 0.6 0-1.3 10 ^3/uL Eosinophils # (Auto) 0.6 0-0.8 10 ^3/uL Basophils # (Auto) 0.1 0-0.2 10 ^3/uL Nucleated Red Blood Cells 0.3 % Sodium Level 140 136-145 mmol/L Potassium Level 3.6 3.5-5.1 mmol/L Chloride Level 100 98-107 mmol/L Carbon Dioxide Level 30 20-31 mmol/L Anion Gap 10 5-15 Blood Urea Nitrogen 15 9-23 mg/dL Creatinine 0.91 0.550-1.02 mg/dL Glomerular Filtration Rate Calc 67 >90 mL/min BUN/Creatinine Ratio 16.5 10.0-20.0 Serum Glucose 117 H 74-106 mg/dL Calcium Level 9.2 8.7-10.4 mg/dL Total Bilirubin 0.9 0.2-1.0 mg/dL Aspartate Amino Transferase (AST) 15 13-40 U/L Alanine Aminotransferase (ALT) 15 7-40 U/L Alkaline Phosphatase 68 46-116 U/L Total Protein 6.4 5.7-8.2 g/dL Albumin 4.1 3.2-4.8 g/dL POC Glucose 159 H 70-106 mg/dl Urine Color Light-yellow Yellow Urine Clarity Clear Clear Urine pH 5.5 5.0-9.0 Urine Specific [place] 1.017 1.001-1.035 Urine Protein Negative Negative Urine Ketones Negative Negative Urine Blood Negative Negative /uL Urine Nitrite 2+ H Negative Urine Bilirubin Negative Negative Urine Urobilinogen Normal Negative mg/dL Urine Leukocyte Esterase Trace Negative /uL Urine RBC 1 0 - 4 /hpf Urine Microscopic WBC 4 0-5 /HPF Urine Squamous Epithelial Cells Few <5 /hpf Urine Bacteria Few H None Seen /hpf Urine Glucose Normal Normal mg/dL Hemoglobin A1c 6.0 H <5.7 % A1C Troponin I High Sensitivity 9 </=34 ng/L B-Type Natriuretic Peptide 34.27 0-100 pg/mL Triglycerides Level 153 H < 150 mg/dL Cholesterol Level 151 < 200 mg/dL LDL Cholesterol 76 < 100 mg/dL HDL Cholesterol 56 40-59 mg/dL Vitamin B12 Level 669 211-911 pg/mL Folic Acid 28.20 >5.38 ng/mL Thyroid Stimulating Hormone (TSH) 1.17 0.55-4.78 uIU/mL Assessment Impression: Pulmonary nodule, 13-14 mm Urinary tract infection Prediabetes Hypertension Obesity, BMI 31.6 Plan: Supplemental oxygen PRN Titrate to keep O2 sats above 92% CT chest on 12/02 revealed 13-14 mm nodule, noncalcified, left posterior costophrenic angle. Recommend repeat CT chest w/o contrast in 3 months for followup of pulmonary nodule Pt states that she is aware of nodule and has been present for 10 years. Recommend to obtain prior reports and f/u in Pulmonary clinic in 2-3 weeks. Accu-Cheks Blood pressure control Antibiotics for UTI Monitor renal function. Monitor electrolytes. Supplement as necessary. Monitor ins and outs. Diet and lifestyle modifications for weight reduction Obesity - complicates all care Known pulmonary nodule, per patient Patient is stable for discharge from the pulmonary standpoint. DVT prophylaxis. Prognosis: Poor given patient's multiple co-morbidities. Rest of plan per hospitalist and other consultants. Thank you Dr. Pierce, for allowing me to participate in this patient's care. Further recommendations will depend on the patient's clinical course. Please do not hesitate to contact me if you have any questions or concerns. This medical document was created using an electronic medical record system with [employer] dictation system. Although these documentations are being carefully reviewed, there may still be some phonetic and typographical changes. The errors are purely typographical, due to imperfection on the software program, and do not reflect any compromise in the patient's medical care. Plan discussed with: Patient, Other (SANDY Garcia/Dr. Pierce) RAD REYES MD December 03, 2024 21:25
== END 2024-12-03 19:10 | disposition home or self-care (01) | DRG 690 ==
LOC: EDBD 14:59 → ER 15:21 → OVERFLOW 21:14 → TELE-EAST 23:25
PROVIDERS: ADMIT Internal Medicine Geriatric Medicine; ATTEND Internal Medicine Geriatric Medicine
DX: N30.00 Acute cystitis without hematuria (principal); I10 Essential (primary) hypertension; E66.9 Obesity, unspecified; Z68.31 Body mass index [BMI] 31.0-31.9, adult; E11.9 Type 2 diabetes mellitus without complications; M25.552 Pain in left hip; M25.512 Pain in left shoulder; E78.1 Pure hyperglyceridemia; R91.1 Solitary pulmonary nodule; Z90.49 Acquired absence of other specified parts of digestive tract; W18.39XA Other fall on same level, initial encounter; Y93.89 Activity, other specified; Y99.8 Other external cause status; Y92.000 Kitchen of unspecified non-institutional (private) residence as the place of occurrence of the external cause
CPT/HCPCS: 36415; 70450; 71045; 71250; 73030; 80048; 80053; 80061; 81001; 82607; 82746; 82962; 83036; 83880; 84443; 84484; 85025; 93005; 93306; 93886; G0378